=== PATIENT | male | born 1970 | race Caucasian/White ===

== ENCOUNTER 2019-11-01 16:39 | Inpatient (IN) | payer MEDICAID ==
[~2019-11-01] VITALS: Ht 182.9 cm; Wt 183.6 kg
[2019-11-01] MEDS ORDERED: morphine 4 MG/ML inj SYRINge IV ONE (17:05)
[2019-11-01] MEDS ORDERED: piperacillin/tazo 3.375gm/50ml 50 ML IV ONE (17:05)
[2019-11-01] MEDS ORDERED: normal saline 1000ML IV soln IVB ONE (17:05)
[2019-11-01] MEDS ORDERED: vancomycin/NS 1 GM ADD-VANTAGE 250 ML IV ONE (17:05)
[2019-11-01 17:55] LABS: ALANINE AMINOTRANSFERASE 43 U/L (12-78); ALBUMIN 2.6 G/DL (3.4-5.0); ALBUMIN/GLOBULIN RATIO 0.6 (1.1-1.5); ALKALINE PHOSPHATASE 162 IU/L (46-116); ANION GAP 11 (8-16); ASPARTATE AMINO TRANSFERASE 17 U/L (10-37); BILIRUBIN,TOTAL 0.5 MG/DL (0.1-1.0); BLOOD UREA NITROGEN 9 MG/DL (7-18); C-REACTIVE PROTEIN 22.02 MG/DL (0.0-0.5); CALCIUM 8.1 MG/DL (8.5-10.1); CHLORIDE 104 MMOL/L (99-107); GLUCOSE 323 MG/DL (70-104); POTASSIUM 3.8 MMOL/L (3.5-5.1); SODIUM 141 MMOL/L (135-145); TOTAL CARBON DIOXIDE 25.9 MMOL/L (24-32); TOTAL PROTEIN 7.3 G/DL (6.4-8.2); eGFR 90 ML/MIN
[2019-11-01 17:56] LABS: BASOPHILS # (AUTO) 0.2 X10'3 (0-0.2); BASOPHILS % (AUTO) 1.1 % (0-1); EOSINOPHILS # (AUTO) 0.1 X10'3 (0-0.9); EOSINOPHILS % (AUTO) 0.6 % (0-6); HEMATOCRIT 43.2 % (42.0-52.0); HEMOGLOBIN 13.9 g/dl (14.0-17.9); LYMPHOCYTES # (AUTO) 1.8 X10'3 (1.1-4.8); LYMPHOCYTES % (AUTO) 12.7 % (21-51); MEAN CORPUSCULAR HEMOGLOBIN 26.4 PG (27.0-31.0); MEAN CORPUSCULAR HGB CONC 32.2 g/dL (33.0-36.5); MEAN PLATELET VOLUME 7.9 FL (7.4-10.4); MONOCYTES # (AUTO) 1.1 X10'3 (0-0.9); MONOCYTES % (AUTO) 7.9 % (2-12); NEUTROPHILS # (AUTO) 10.9 X10'3 (1.8-7.7); NEUTROPHILS % (AUTO) 77.7 % (42-75); PLATELET COUNT 221 X10'3 (140-440); RED BLOOD COUNT 5.27 X10'6 (4.70-6.10); RED CELL DISTRIBUTION WIDTH 17.4 % (11.5-14.5)
[2019-11-01 18:10] LABS: CLARITY,URINE SLIGHTLY CLOUDY (Clear); COLOR,URINE YELLOW (Yellow); GLUCOSE, URINE >=1000 mg/dl (Neg); KETONES,URINE >=80 mg/dl (Neg); LEUKOCYTE ESTERASE ,URINE NEGATIVE (Neg); NITRITES, URINE NEGATIVE (Neg); OCCULT BLOOD,URINE TRACE-INTACT (Neg); PH,URINE 5.5 (4.8-8.0); PROTEIN,URINE TRACE mg/dl (Neg); UROBILINOGEN,URINE 0.2 E.U/dL (0.2-1.0)
[2019-11-01 18:13] LABS: UA COLLECTION TYPE URINAL
[2019-11-01 18:32] LABS: WBC,URINE 0-4 /HPF (0-4)
[2019-11-01 18:33] LABS: BACTERIA,URINE FEW /HPF (Neg); RBC,URINE 0-2 /HPF (0-2); SQUAMOUS EPITHELIAL CELL,UR NONE SEEN /LPF (FEW)
[2019-11-01] MEDS ORDERED: NO HOME MEDS (19:23)
[2019-11-01] MEDS: normal saline 1000ml 1,000 ML IV SCH (19:24)
[2019-11-01 19:25] LABS: ABG BASE EXCESS -4.5 mmol/L (-2.0-3.0); ABG OXYGEN SATURATION 97.5 % (95-98); ABG PCO2 (T) 45.7 mmHg (35.0-45.0); ABG PO2 (T) 105.9 mmHg (83-108); ALLEN'S TEST POSITIVE; FCOHb 1.9 % (0.5-1.5); FLOW 3 L/min; FO2Hb 95.6 % (94-100); TOTAL HEMOGLOBIN 14.4 G/dl (14.0-17.9)
[2019-11-01] MEDS ORDERED: magnesium 4gm in 100ml NS 100 ML IV PRN (19:25)
[2019-11-01] MEDS ORDERED: acetaminophen 325mg tablet PO PRN (19:25)
[2019-11-01] MEDS ORDERED: potassium CL 10mEq/100ml bag 100 ML IV PRN ×2 (19:25)
[2019-11-01] MEDS ORDERED: potassium Cl 20 mEq SR tablet PO PRN ×2 (19:25)
[2019-11-01] MEDS ORDERED: magnesium Cl slow-release 64mg tablet PO PRN (19:25)
[2019-11-01] MEDS ORDERED: magnesium 2GM in 50ml NS 50 ML IV PRN (19:25)
[2019-11-01] MEDS ORDERED: ondansetron/PF 4mg/2ml inj IV PRN (19:25)
[2019-11-01] MEDS: K and/or MAG REPLACEMENT MC SCH (20:00)
[2019-11-01] MEDS ORDERED: vancomycin/NS 1 GM ADD-VANTAGE 250 ML IV SCH (20:00)
--- NOTE | 2019-11-01 21:18 | NUR ---
Patient in room ED 1. I have received report from Alexander ARCOS and had the opportunity to ask questions and assume patient care. Pt will be going to room 3021Z.
--- NOTE | 2019-11-01 21:25 | NUR ---
Pt arrived on floor. Tele monitor hooked up, pt on 4L of Oxygen, vital signs obtained- 136/96, 106 hr, 98%, 20 RR. MRSA swab obtained. Will continue to monitor pt closely.
[2019-11-01 22:00] VITALS: BP 136/96
--- NOTE | 2019-11-01 22:04 | NUR ---
PAGER ID: [phone] MESSAGE: [id number] Ren Mir Cellulitis of scrotum. Pt has blood sugar of 272 can I start hypo/hyper protocol? Pt also has new onset sleep apnea can I put in order for CPAP and RT? Thanks! Shilpi ARCOS ext [phone]
[2019-11-01] MEDS ORDERED: dextrose ORAL solution 15 GM/59 ML bottle PO PRN ×2 (22:10)
[2019-11-01] MEDS ORDERED: dextrose 50%-water 50ml dispensing syringe IV PRN ×2 (22:10)
[2019-11-01] MEDS ORDERED: MESSAGE TO PHARMACY PO ONE (22:10)
[2019-11-01] MEDS ORDERED: glucagon, human recombinant 1mg kit SUBCUT PRN (22:10)
[2019-11-01 22:27] LABS: HEMOGLOBIN A1C 12.3 % (4.5-6.2)
[2019-11-02] VITALS (7 sets, daily range): BP systolic 119–160; BP diastolic 77–91
[2019-11-02] MEDS: VANCOMYCIN 1,500MG inj. 1,500 MG in normal saline 500ml IV soln 500 ML IV SCH ×3 (00:05→17:34)
[2019-11-02] MEDS: piperacillin/tazo 4.5gm/100ml 100 ML IV SCH ×3 (00:05→17:33)
[2019-11-02] MEDS: docusate sod 100mg capsule PO SCH ×3 (00:06→20:22)
[2019-11-02] MEDS: insulin glargine (Lantus) pen - multi-dose SQ SCH ×2 (00:12→21:13)
[2019-11-02] MEDS: insulin Lispro (HumaLOG) vial - multi-dose SQ SCH ×6 (00:14→21:12)
--- NOTE | 2019-11-02 00:24 | NUR ---
LATE ADMINISTRATION OF COLACE DUE TO PRIORITY OF CARE. WILL CONTINUE TO MONITOR CLOSELY.
[2019-11-02] MEDS: normal saline 1000ml 1,000 ML IV SCH ×2 (05:33→15:56)
[2019-11-02 05:48] LABS: BASOPHILS # (AUTO) 0.1 X10'3 (0-0.2); BASOPHILS % (AUTO) 0.5 % (0-1); EOSINOPHILS # (AUTO) 0.1 X10'3 (0-0.9); EOSINOPHILS % (AUTO) 0.5 % (0-6); HEMATOCRIT 43.9 % (42.0-52.0); LYMPHOCYTES % (AUTO) 8.7 % (21-51); MEAN CORPUSCULAR HEMOGLOBIN 26.5 PG (27.0-31.0); MEAN CORPUSCULAR VOLUME 82.9 FL (78-98); MEAN PLATELET VOLUME 7.8 FL (7.4-10.4); MONOCYTES % (AUTO) 8.1 % (2-12); NEUTROPHILS # (AUTO) 9.8 X10'3 (1.8-7.7); NEUTROPHILS % (AUTO) 82.2 % (42-75); PLATELET COUNT 217 X10'3 (140-440); RED BLOOD COUNT 5.29 X10'6 (4.70-6.10); RED CELL DISTRIBUTION WIDTH 17.9 % (11.5-14.5)
[2019-11-02 06:06] LABS: ALBUMIN 2.5 G/DL (3.4-5.0); ANION GAP 9 (8-16); BLOOD UREA NITROGEN 8 MG/DL (7-18); BUN/CREATININE RATIO 8.8 (5.4-32.0); CALCIUM 8.2 MG/DL (8.5-10.1); CHLORIDE 102 MMOL/L (99-107); CREATININE 0.91 MG/DL (0.60-1.10); GLUCOSE 304 MG/DL (70-104); POTASSIUM 3.9 MMOL/L (3.5-5.1); SODIUM 139 MMOL/L (135-145); TOTAL CARBON DIOXIDE 27.8 MMOL/L (24-32); eGFR 89 ML/MIN
--- NOTE | 2019-11-02 06:13 | NUR ---
Problems reprioritized. Patient report given, questions answered & plan of care reviewed with Bren ARCOS .
--- NOTE | 2019-11-02 06:15 | NUR ---
ORIENTEE documentation: I have reviewed and agree with all interventions, assessments performed and documented by ISRRAEL GOMEZ.
--- NOTE | 2019-11-02 06:42 | NUR ---
Patient in room PCU 3024. I have received report from ISRRAEL Boyd/Maryellen ARCOS and had the opportunity to ask questions and assume patient care.
[2019-11-02] MEDS: K and/or MAG REPLACEMENT MC SCH ×2 (08:00→20:00)
[2019-11-02] MEDS: lisinopril 10 MG tablet PO SCH (11:10)
--- NOTE | 2019-11-02 11:16 | NUR ---
DM Consult: A1C 12.3. Pt admit w/ scrotal cellulitis, new DM DX Glu 261 down from 323 on admit, and severe morbid obesity BMI 54.9 183.5kg standing scale wt. RD d/w RN who reports pt has not been seen by MD yet for official DM DX; will need DM ed once pt aware of DX and seen by MD prior to discharge. PO 100% avg carb controlled diet per RN; triple eggs at breakfast and triple meats BIDLD added to meals given significant protein needs w/ pt wt and infection DX. LBM 10/31. Will continue to monitor. Rec: 1. continue carb controlled diet 2. triple eggs at breakfast; triple meats BIDLD 3. routine bowel care 4. thorough DM ed once pt aware of new DM DX and seen by MD prior to discharge 5. wt per rx Addendum: 11/02/19 at [address] Amended: Links added.
[2019-11-02 15:32] LABS: URINE AMPHETAMINE SCREEN POSITIVE (Neg); URINE BARBITUATE SCREEN NEGATIVE (Neg); URINE BENZODIAZEPINES SCREEN NEGATIVE (Neg); URINE CANNABINOID SCREEN NEGATIVE (Neg); URINE COCAINE SCREEN NEGATIVE (Neg); URINE METHADONE SCREEN NEGATIVE (Neg); URINE OPIATE SCREEN NEGATIVE (Neg); URINE PHENCYCLIDINE SCREEN NEGATIVE (Neg)
--- NOTE | 2019-11-02 17:46 | NUR ---
Called Dr Cedeño's answering service to inform her of our hospital not having a scrotal sling that will fit this patient. Awaiting her call.
--- NOTE | 2019-11-02 18:29 | NUR ---
Problems reprioritized. Patient report given, questions answered & plan of care reviewed with ISRRAEL Boyd/ISRRAEL Dobbins. Informed nurses that patient is to have scrotum in a sling at all times to decreas swelling.
--- NOTE | 2019-11-02 18:32 | NUR ---
Patient in room PCU 3024. I have received report from NEVAEH ARCOS and had the opportunity to ask questions and assume patient care.
[2019-11-02] MEDS: morphine 2 MG/ML inj. syringe IV PRN (18:42)
--- NOTE | 2019-11-02 19:15 | NUR ---
Patient in room PCU 3024B. I have received report from ISRRAEL HERRING and had the opportunity to ask questions and assume patient care. PATIENT AWAKE FOR BEDSIDE REPORT WITH AT BEDSIDE. PATIENT ON 2L NC AND STABLE AT THIS TIME. WILL CONTINUE TO MONITOR CLOSELY.
[2019-11-02] MEDS: lactobacillus rhamnosus 10,000 MMU CELLS/CAPSULE PO SCH (20:22)
[2019-11-02] MEDS ORDERED: VANCOMYCIN LEVEL IV ONE (23:30)
[2019-11-03] MEDS: VANCOMYCIN 1,500MG inj. 1,500 MG in normal saline 500ml IV soln 500 ML IV SCH ×4 (00:15→21:17)
[2019-11-03] MEDS: piperacillin/tazo 4.5gm/100ml 100 ML IV SCH ×3 (00:16→16:23)
[2019-11-03] MEDS: normal saline 1000ml 1,000 ML IV SCH ×3 (01:24→21:18)
[2019-11-03 02:00] VITALS: BP 159/89
[2019-11-03 05:16] LABS: BASOPHILS # (AUTO) 0.1 X10'3 (0-0.2); EOSINOPHILS # (AUTO) 0.2 X10'3 (0-0.9); EOSINOPHILS % (AUTO) 2.1 % (0-6); HEMATOCRIT 41.7 % (42.0-52.0); HEMOGLOBIN 13.4 g/dl (14.0-17.9); LYMPHOCYTES # (AUTO) 1.2 X10'3 (1.1-4.8); LYMPHOCYTES % (AUTO) 13.6 % (21-51); MEAN CORPUSCULAR HEMOGLOBIN 26.3 PG (27.0-31.0); MEAN CORPUSCULAR HGB CONC 32.2 g/dL (33.0-36.5); MEAN CORPUSCULAR VOLUME 81.6 FL (78-98); MEAN PLATELET VOLUME 7.8 FL (7.4-10.4); MONOCYTES # (AUTO) 0.8 X10'3 (0-0.9); MONOCYTES % (AUTO) 9.2 % (2-12); NEUTROPHILS # (AUTO) 6.6 X10'3 (1.8-7.7); NEUTROPHILS % (AUTO) 74.1 % (42-75); PLATELET COUNT 219 X10'3 (140-440); RED CELL DISTRIBUTION WIDTH 17.4 % (11.5-14.5); WHITE BLOOD COUNT 8.9 X10'3 (4.5-11.0)
[2019-11-03 05:25] LABS: ALBUMIN 2.2 G/DL (3.4-5.0); ANION GAP 5 (8-16); BLOOD UREA NITROGEN 7 MG/DL (7-18); BUN/CREATININE RATIO 8.8 (5.4-32.0); CALCIUM 8.1 MG/DL (8.5-10.1); CHLORIDE 105 MMOL/L (99-107); GLUCOSE 221 MG/DL (70-104); POTASSIUM 3.6 MMOL/L (3.5-5.1); SODIUM 140 MMOL/L (135-145); TOTAL CARBON DIOXIDE 29.9 MMOL/L (24-32); eGFR > 90 ML/MIN
[2019-11-03 06:00] VITALS: BP_SYST 122; BP_DIAS 22; BP_DIAS 72
--- NOTE | 2019-11-03 06:33 | NUR ---
Problems reprioritized. Patient report given, questions answered & plan of care reviewed with ISRRAEL Correia.
--- NOTE | 2019-11-03 06:59 | NUR ---
Patient in room PCU 3024. I have received report from ISRRAEL Boyd and had the opportunity to ask questions and assume patient care.
[2019-11-03] MEDS: K and/or MAG REPLACEMENT MC SCH ×2 (08:00→19:27)
[2019-11-03] MEDS: insulin Lispro (HumaLOG) vial - multi-dose SQ SCH ×3 (09:11→21:15)
[2019-11-03] MEDS: heparin, porcine 5000 units/ml vial SQ SCH ×2 (09:16→21:18)
[2019-11-03] MEDS: lactobacillus rhamnosus 10,000 MMU CELLS/CAPSULE PO SCH ×2 (09:18→21:17)
[2019-11-03] MEDS: docusate sod 100mg capsule PO SCH ×2 (09:18→21:17)
[2019-11-03] MEDS: lisinopril 10 MG tablet PO SCH (09:23)
--- NOTE | 2019-11-03 16:27 | NUR ---
DM Consult: A1C 12.3. Pt admit w/ scrotal cellulitis, new DM DX. Met patient and at bedside, patient heavily asleep would and unable to participate in education. at bedside reports patient has tried diets and "cutting out sugar" in the past and says currently he just needs to stop drinking sugar sweetened beverages. Provided with written DM educations handouts to review with him tonight and will return tomorrow to meet with patient and for detailed verbal review of DM education. Addendum: 11/03/19 at [address] Amended: Links added.
[2019-11-03 18:00] VITALS: BP 156/96
--- NOTE | 2019-11-03 18:28 | NUR ---
Problems reprioritized. Patient report given, questions answered & plan of care reviewed with ISRRAEL Cruz. Informed nurse, patient needs to keep scrotal support around scrotum to decrease swelling, per Dr Salcedo requests.
[2019-11-03] MEDS: insulin glargine (Lantus) pen - multi-dose SQ SCH (21:14)
[2019-11-03 22:00] VITALS: BP 149/87
[2019-11-04] VITALS (7 sets, daily range): BP systolic 125–171; BP diastolic 70–96
[2019-11-04] MEDS: piperacillin/tazo 4.5gm/100ml 100 ML IV SCH ×3 (00:35→16:00)
[2019-11-04] MEDS ORDERED: VANCOMYCIN LEVEL IV ONE (01:30)
[2019-11-04] MEDS: VANCOMYCIN 1,500MG inj. 1,500 MG in normal saline 500ml IV soln 500 ML IV SCH ×5 (02:05→21:02)
[2019-11-04 02:11] LABS: ALBUMIN 2.1 G/DL (3.4-5.0); ANION GAP 5 (8-16); BLOOD UREA NITROGEN 6 MG/DL (7-18); BUN/CREATININE RATIO 8.8 (5.4-32.0); CALCIUM 7.9 MG/DL (8.5-10.1); CHLORIDE 107 MMOL/L (99-107); CREATININE 0.68 MG/DL (0.60-1.10); GLUCOSE 189 MG/DL (70-104); MAGNESIUM 1.9 MG/DL (1.5-2.4); POTASSIUM 3.5 MMOL/L (3.5-5.1); SODIUM 142 MMOL/L (135-145); TOTAL CARBON DIOXIDE 30.1 MMOL/L (24-32); VANCOMYCIN,TROUGH 14.5 UG/ML (6.0-14.0); eGFR > 90 ML/MIN
[2019-11-04 02:28] LABS: BASOPHILS # (AUTO) 0.1 X10'3 (0-0.2); BASOPHILS % (AUTO) 0.9 % (0-1); EOSINOPHILS # (AUTO) 0.2 X10'3 (0-0.9); EOSINOPHILS % (AUTO) 2.3 % (0-6); HEMATOCRIT 42.7 % (42.0-52.0); HEMOGLOBIN 13.7 g/dl (14.0-17.9); LYMPHOCYTES # (AUTO) 1.1 X10'3 (1.1-4.8); LYMPHOCYTES % (AUTO) 13.9 % (21-51); MEAN CORPUSCULAR HEMOGLOBIN 26.2 PG (27.0-31.0); MEAN CORPUSCULAR VOLUME 81.7 FL (78-98); MEAN PLATELET VOLUME 7.7 FL (7.4-10.4); MONOCYTES # (AUTO) 0.7 X10'3 (0-0.9); MONOCYTES % (AUTO) 9.2 % (2-12); NEUTROPHILS # (AUTO) 5.8 X10'3 (1.8-7.7); NEUTROPHILS % (AUTO) 73.7 % (42-75); PLATELET COUNT 231 X10'3 (140-440); RED BLOOD COUNT 5.22 X10'6 (4.70-6.10); RED CELL DISTRIBUTION WIDTH 17.3 % (11.5-14.5); WHITE BLOOD COUNT 7.9 X10'3 (4.5-11.0)
--- NOTE | 2019-11-04 06:15 | NUR ---
Problems reprioritized. Patient report given, questions answered & plan of care reviewed with Jennyfer ARCOS.
--- NOTE | 2019-11-04 06:30 | NUR ---
Patient in room PCU 3024. I have received report from Nancy ARCOS and had the opportunity to ask questions and assume patient care.
[2019-11-04] MEDS: insulin Lispro (HumaLOG) vial - multi-dose SQ SCH ×3 (07:53→18:39)
[2019-11-04] MEDS: normal saline 1000ml 1,000 ML IV SCH ×2 (07:56→18:46)
[2019-11-04] MEDS: docusate sod 100mg capsule PO SCH ×2 (08:00→21:02)
[2019-11-04] MEDS: K and/or MAG REPLACEMENT MC SCH ×2 (08:00→20:00)
[2019-11-04] MEDS: heparin, porcine 5000 units/ml vial SQ SCH ×2 (08:01→21:04)
[2019-11-04] MEDS: lactobacillus rhamnosus 10,000 MMU CELLS/CAPSULE PO SCH ×2 (08:01→21:02)
[2019-11-04] MEDS: lisinopril 10 MG tablet PO SCH (08:02)
--- NOTE | 2019-11-04 13:55 | NUR ---
IV was lost during vanco administration this morning, PICC nurse was contacted because patient is a hard stick. When IV was replaced, vanco administration resumed and finished running at 1230, next dose was due at 1400, I contacted pharmacy to space out the next dose and the pharmacist advised me to skip the 1400 and resume with the 2000 dose this evening.
--- NOTE | 2019-11-04 15:43 | NUR ---
Follow up: attempted another bedside visit with patient regarding new DM dx and nutrition education. Was fast asleep after PT, would not stay awake for education. Discussed DM education with his SO. Will return tomorrow before patient participates in PT, discussed above with bedside RN. Addendum: 11/04/19 at [address] Amended: Links added.
[2019-11-04] MEDS: insulin glargine (Lantus) pen - multi-dose SQ SCH (21:15)
[2019-11-05] MEDS: piperacillin/tazo 4.5gm/100ml 100 ML IV SCH ×3 (00:13→16:31)
[2019-11-05 03:00] VITALS: BP 126/74
[2019-11-05] MEDS: VANCOMYCIN 1,500MG inj. 1,500 MG in normal saline 500ml IV soln 500 ML IV SCH ×4 (03:18→23:22)
[2019-11-05] MEDS: normal saline 1000ml 1,000 ML IV SCH ×3 (03:24→23:24)
[2019-11-05 05:17] LABS: BASOPHILS # (AUTO) 0.1 X10'3 (0-0.2); BASOPHILS % (AUTO) 0.9 % (0-1); EOSINOPHILS # (AUTO) 0.2 X10'3 (0-0.9); EOSINOPHILS % (AUTO) 2.2 % (0-6); HEMATOCRIT 43.4 % (42.0-52.0); HEMOGLOBIN 14.1 g/dl (14.0-17.9); LYMPHOCYTES # (AUTO) 1.1 X10'3 (1.1-4.8); LYMPHOCYTES % (AUTO) 14.8 % (21-51); MEAN CORPUSCULAR HEMOGLOBIN 26.8 PG (27.0-31.0); MEAN CORPUSCULAR HGB CONC 32.6 g/dL (33.0-36.5); MEAN CORPUSCULAR VOLUME 82.3 FL (78-98); MEAN PLATELET VOLUME 7.4 FL (7.4-10.4); MONOCYTES # (AUTO) 0.5 X10'3 (0-0.9); MONOCYTES % (AUTO) 7.2 % (2-12); NEUTROPHILS # (AUTO) 5.5 X10'3 (1.8-7.7); NEUTROPHILS % (AUTO) 74.9 % (42-75); PLATELET COUNT 242 X10'3 (140-440); RED BLOOD COUNT 5.28 X10'6 (4.70-6.10); RED CELL DISTRIBUTION WIDTH 17.4 % (11.5-14.5); WHITE BLOOD COUNT 7.3 X10'3 (4.5-11.0)
[2019-11-05 05:35] LABS: ANION GAP 8 (8-16); BLOOD UREA NITROGEN 9 MG/DL (7-18); BUN/CREATININE RATIO 11.8 (5.4-32.0); CALCIUM 7.9 MG/DL (8.5-10.1); CHLORIDE 107 MMOL/L (99-107); CREATININE 0.76 MG/DL (0.60-1.10); GLUCOSE 240 MG/DL (70-104); MAGNESIUM 1.9 MG/DL (1.5-2.4); POTASSIUM 3.5 MMOL/L (3.5-5.1); SODIUM 143 MMOL/L (135-145); TOTAL CARBON DIOXIDE 27.6 MMOL/L (24-32); eGFR > 90 ML/MIN
[2019-11-05 06:00] VITALS: BP 130/63
--- NOTE | 2019-11-05 06:17 | NUR ---
Problems reprioritized. Patient report given, questions answered & plan of care reviewed with Angelica ARCOS.
[2019-11-05] MEDS: K and/or MAG REPLACEMENT MC SCH ×2 (07:09→20:00)
[2019-11-05] MEDS: lactobacillus rhamnosus 10,000 MMU CELLS/CAPSULE PO SCH ×2 (08:00→20:02)
[2019-11-05] MEDS: docusate sod 100mg capsule PO SCH ×2 (08:00→20:02)
[2019-11-05] MEDS: lisinopril 10 MG tablet PO SCH (08:48)
[2019-11-05] MEDS: heparin, porcine 5000 units/ml vial SQ SCH ×2 (08:49→20:03)
[2019-11-05] MEDS: insulin Lispro (HumaLOG) vial - multi-dose SQ SCH ×3 (09:34→19:06)
[2019-11-05 11:00] VITALS: BP 140/86
--- NOTE | 2019-11-05 11:08 | NUR ---
Missing IV Vancomycin dose is replaced by pharmacy and started. Taylor
--- NOTE | 2019-11-05 11:09 | NUR ---
IV vancomycin dose Pharmacy is aware and will leave the schedule trough and next dose unchanged.
[2019-11-05] MEDS ORDERED: VANCOMYCIN LEVEL IV ONE (13:30)
--- NOTE | 2019-11-05 14:08 | NUR ---
Patient in room PCU 3024. I have received report from ISRRAEL Dominguez and had the opportunity to ask questions and assume patient care.
[2019-11-05 15:00] VITALS: BP 151/87
--- NOTE | 2019-11-05 15:37 | NUR ---
Reassessment: eating well, good appetite. Spoke with patient and SO at bedside and provided detailed review of DM education, types of carbs, carb counting, portion sizes, effects of uncontrolled DM, what A1c means, etc. Rec: 1. continue carb controlled diet 2. triple eggs at breakfast; triple meats BIDLD 3. routine bowel care 4. wt per rx Addendum: 11/05/19 at [address] Amended: Links added.
--- NOTE | 2019-11-05 15:54 | NUR ---
PAGER ID: [phone] MESSAGE: [id number]: Luciano NOBLES: Pt left groin area is putting out joaquin - Aletha [phone]
--- NOTE | 2019-11-05 16:11 | NUR ---
New orders from [facility] to culture drainage from abscess to left groin
--- NOTE | 2019-11-05 17:46 | NUR ---
New orders from [facility] for pt to reieive 25 units SQ lantus q HS
[2019-11-05 18:00] VITALS: BP 135/80
--- NOTE | 2019-11-05 18:17 | NUR ---
Problems reprioritized. Patient report given, questions answered & plan of care reviewed with ISRRAEL Baca.
--- NOTE | 2019-11-05 18:42 | NUR ---
Patient in room PCU 3024. I have received report from Aletha ARCOS and had the opportunity to ask questions and assume patient care.
[2019-11-05] MEDS: HYDROcodone/acetaminophen 5mg/325mg tablet PO PRN (20:03)
[2019-11-05] MEDS ORDERED: insulin glargine (Lantus) pen - multi-dose SQ SCH (21:00)
[2019-11-05 22:00] VITALS: BP 160/90
[2019-11-06] MEDS: piperacillin/tazo 4.5gm/100ml 100 ML IV SCH ×3 (00:19→17:38)
[2019-11-06 02:00] VITALS: BP 145/94
[2019-11-06] MEDS ORDERED: VANCOMYCIN LEVEL IV ONE (04:30)
[2019-11-06 06:07] LABS: ALBUMIN 2.2 G/DL (3.4-5.0); ANION GAP 10 (8-16); BLOOD UREA NITROGEN 11 MG/DL (7-18); BUN/CREATININE RATIO 15.5 (5.4-32.0); CALCIUM 8.6 MG/DL (8.5-10.1); CHLORIDE 106 MMOL/L (99-107); CREATININE 0.71 MG/DL (0.60-1.10); GLUCOSE 181 MG/DL (70-104); MAGNESIUM 1.9 MG/DL (1.5-2.4); POTASSIUM 3.7 MMOL/L (3.5-5.1); SODIUM 144 MMOL/L (135-145); TOTAL CARBON DIOXIDE 28.5 MMOL/L (24-32); VANCOMYCIN,TROUGH 14.4 UG/ML (6.0-14.0); eGFR > 90 ML/MIN
[2019-11-06 06:09] LABS: BASOPHILS # (AUTO) 0.1 X10'3 (0-0.2); BASOPHILS % (AUTO) 0.8 % (0-1); EOSINOPHILS # (AUTO) 0.2 X10'3 (0-0.9); HEMOGLOBIN 14.7 g/dl (14.0-17.9); LYMPHOCYTES # (AUTO) 1.1 X10'3 (1.1-4.8); LYMPHOCYTES % (AUTO) 13.8 % (21-51); MEAN CORPUSCULAR HEMOGLOBIN 26.7 PG (27.0-31.0); MEAN CORPUSCULAR HGB CONC 32.7 g/dL (33.0-36.5); MEAN CORPUSCULAR VOLUME 81.5 FL (78-98); MEAN PLATELET VOLUME 7.1 FL (7.4-10.4); MONOCYTES # (AUTO) 0.7 X10'3 (0-0.9); MONOCYTES % (AUTO) 8.5 % (2-12); NEUTROPHILS % (AUTO) 74.9 % (42-75); PLATELET COUNT 279 X10'3 (140-440); RED BLOOD COUNT 5.52 X10'6 (4.70-6.10); RED CELL DISTRIBUTION WIDTH 17.4 % (11.5-14.5)
--- NOTE | 2019-11-06 06:11 | NUR ---
Patient in room PCU 3024. I have received report from ISRRAEL Baca and had the opportunity to ask questions and assume patient care.
[2019-11-06] MEDS: VANCOMYCIN 1,500MG inj. 1,500 MG in normal saline 500ml IV soln 500 ML IV SCH ×3 (06:48→20:45)
[2019-11-06 07:00] VITALS: BP 115/73
--- NOTE | 2019-11-06 07:30 | NUR ---
Problems reprioritized. Patient report given, questions answered & plan of care reviewed with Aletha ARCOS.
[2019-11-06] MEDS: heparin, porcine 5000 units/ml vial SQ SCH ×2 (08:42→19:47)
[2019-11-06] MEDS: lactobacillus rhamnosus 10,000 MMU CELLS/CAPSULE PO SCH ×2 (08:42→19:46)
[2019-11-06] MEDS: docusate sod 100mg capsule PO SCH ×2 (08:42→19:46)
[2019-11-06] MEDS: lisinopril 10 MG tablet PO SCH (08:42)
[2019-11-06] MEDS: K and/or MAG REPLACEMENT MC SCH ×2 (08:48→20:00)
[2019-11-06] MEDS: normal saline 1000ml 1,000 ML IV SCH ×2 (09:24→19:24)
[2019-11-06] MEDS: insulin Lispro (HumaLOG) vial - multi-dose SQ SCH ×4 (10:20→21:40)
--- NOTE | 2019-11-06 10:43 | NUR ---
Per Dr. Salcedo, take pt off of NPO and resume CC
[2019-11-06 11:00] VITALS: BP 152/93
[2019-11-06 15:00] VITALS: BP 136/65
[2019-11-06 18:00] VITALS: BP 145/90
--- NOTE | 2019-11-06 18:00 | NUR ---
Patient in room PCU 3024. I have received report from chuck ARCOS and had the opportunity to ask questions and assume patient care.
--- NOTE | 2019-11-06 18:05 | NUR ---
Patient in room PCU 3024. I have received report from ISRRAEL Chua and had the opportunity to ask questions and assume patient care.
--- NOTE | 2019-11-06 19:24 | NUR ---
Patient stated he is willing to try BiPAP mask at 2100 tonight. Addendum: 11/06/19 at 1925 [address] Joes[address] RT Amended: Links added.
[2019-11-06] MEDS ORDERED: insulin glargine (Lantus) pen - multi-dose SQ SCH (21:00)
[2019-11-06 22:00] VITALS: BP 145/85
[2019-11-07 02:30] VITALS: BP 122/74
--- NOTE | 2019-11-07 03:47 | NUR ---
I placed the patient on the BiPAP but he was only able to tolerate it for about an hour before it was taken off of him. Patient stated it was hard for him to breathe with it. I adjusted the settings for the patient to his comfort but it still only lasted an hour on him.
[2019-11-07] MEDS: VANCOMYCIN 1,500MG inj. 1,500 MG in normal saline 500ml IV soln 500 ML IV SCH ×4 (03:55→22:30)
[2019-11-07] MEDS: normal saline 1000ml 1,000 ML IV SCH ×2 (05:24→14:15)
[2019-11-07 06:06] LABS: MAGNESIUM 2.1 MG/DL (1.5-2.4)
[2019-11-07 06:30] VITALS: BP 98/74
--- NOTE | 2019-11-07 06:36 | NUR ---
Patient in room PCU 3024B. I have received report from Libia ARCOS and had the opportunity to ask questions and assume patient care.
--- NOTE | 2019-11-07 06:40 | NUR ---
Problems reprioritized. Patient report given, questions answered & plan of care reviewed with Flakita ARCOS.
--- NOTE | 2019-11-07 06:40 | NUR ---
Received positive culture growth MRSA in groin. Reported result to Dr Rodriguez with no change in orders
[2019-11-07 07:06] LABS: ALANINE AMINOTRANSFERASE 84 U/L (12-78); ALBUMIN 2.3 G/DL (3.4-5.0); ALBUMIN/GLOBULIN RATIO 0.5 (1.1-1.5); ALKALINE PHOSPHATASE 155 IU/L (46-116); ANION GAP 10 (8-16); ASPARTATE AMINO TRANSFERASE 38 U/L (10-37); BILIRUBIN,TOTAL 0.4 MG/DL (0.1-1.0); BLOOD UREA NITROGEN 9 MG/DL (7-18); BUN/CREATININE RATIO 12.3 (5.4-32.0); CALCIUM 8.8 MG/DL (8.5-10.1); CHLORIDE 106 MMOL/L (99-107); CREATININE 0.73 MG/DL (0.60-1.10); GLUCOSE 149 MG/DL (70-104); POTASSIUM 4.1 MMOL/L (3.5-5.1); SODIUM 144 MMOL/L (135-145); TOTAL CARBON DIOXIDE 28.3 MMOL/L (24-32); TOTAL PROTEIN 6.8 G/DL (6.4-8.2); eGFR > 90 ML/MIN
[2019-11-07 07:08] LABS: BASOPHILS # (AUTO) 0.1 X10'3 (0-0.2); BASOPHILS % (AUTO) 0.7 % (0-1); EOSINOPHILS # (AUTO) 0.2 X10'3 (0-0.9); EOSINOPHILS % (AUTO) 2.2 % (0-6); HEMATOCRIT 46.5 % (42.0-52.0); HEMOGLOBIN 14.8 g/dl (14.0-17.9); LYMPHOCYTES # (AUTO) 1.2 X10'3 (1.1-4.8); LYMPHOCYTES % (AUTO) 14.9 % (21-51); MEAN CORPUSCULAR HEMOGLOBIN 26.4 PG (27.0-31.0); MEAN CORPUSCULAR HGB CONC 31.9 g/dL (33.0-36.5); MEAN CORPUSCULAR VOLUME 82.7 FL (78-98); MEAN PLATELET VOLUME 7.3 FL (7.4-10.4); MONOCYTES # (AUTO) 0.8 X10'3 (0-0.9); MONOCYTES % (AUTO) 10.1 % (2-12); NEUTROPHILS # (AUTO) 5.8 X10'3 (1.8-7.7); NEUTROPHILS % (AUTO) 72.1 % (42-75); PLATELET COUNT 299 X10'3 (140-440); RED BLOOD COUNT 5.62 X10'6 (4.70-6.10); RED CELL DISTRIBUTION WIDTH 17.7 % (11.5-14.5); WHITE BLOOD COUNT 8.1 X10'3 (4.5-11.0)
[2019-11-07] MEDS: docusate sod 100mg capsule PO SCH ×2 (07:45→21:11)
[2019-11-07] MEDS: lactobacillus rhamnosus 10,000 MMU CELLS/CAPSULE PO SCH ×2 (07:45→21:11)
[2019-11-07] MEDS: piperacillin/tazo 4.5gm/100ml 100 ML IV SCH ×3 (07:49→16:45)
[2019-11-07] MEDS: heparin, porcine 5000 units/ml vial SQ SCH ×2 (07:49→21:11)
[2019-11-07] MEDS: lisinopril 10 MG tablet PO SCH (07:53)
[2019-11-07] MEDS: K and/or MAG REPLACEMENT MC SCH ×2 (08:00→20:00)
[2019-11-07] MEDS: insulin Lispro (HumaLOG) vial - multi-dose SQ SCH ×2 (09:12→14:00)
[2019-11-07 11:00] VITALS: BP 138/83
[2019-11-07] MEDS ORDERED: LIDOcaine 1% 30ml preserv. free vial SQ STA (13:05)
--- NOTE | 2019-11-07 14:13 | NUR ---
clicked "non admin" on xylocaine 1% medication, as Dr Salcedo administered during lancing procedure
[2019-11-07 15:00] VITALS: BP 133/73
--- NOTE | 2019-11-07 18:00 | NUR ---
Patient in room PCU 3024. I have received report from nurse Flakita ARCOS and had the opportunity to ask questions and assume patient care.
--- NOTE | 2019-11-07 18:00 | NUR ---
Patient in room U 3024. I have received report from nurse Flakita ARCOS and had the opportunity to ask questions and assume patient care. Addendum: 11/07/19 at 1905 by Korina Fowler RN duplicate, please omit.
--- NOTE | 2019-11-07 18:28 | NUR ---
Problems reprioritized. Patient report given, questions answered & plan of care reviewed with Korina ARCOS.
[2019-11-07] MEDS ORDERED: insulin glargine (Lantus) pen - multi-dose SQ SCH (21:00)
[2019-11-07] MEDS ORDERED: VANCOMYCIN LEVEL IV ONE (21:30)
[2019-11-07] MEDS: HYDROcodone/acetaminophen 5mg/325mg tablet PO PRN (23:20)
[2019-11-08] MEDS: piperacillin/tazo 4.5gm/100ml 100 ML IV SCH ×2 (00:31→08:40)
[2019-11-08 02:00] VITALS: BP 101/56
[2019-11-08] MEDS: normal saline 1000ml 1,000 ML IV SCH ×3 (04:38→21:24)
[2019-11-08] MEDS: VANCOMYCIN 1,500MG inj. 1,500 MG in normal saline 500ml IV soln 500 ML IV SCH ×4 (04:43→22:04)
--- NOTE | 2019-11-08 05:27 | NUR ---
No hypoglycemic episodes this shift; BS of 185. Pt. educated on reporting s/ so hypoglycemia including, sweating, shaking, slurred speech, and disorientation> Pt also education on reporting s/s of infection especially feeling febrile; Pt. verbalized understanding. Addendum: 11/08/19 at 0533 by Korina Fowler RN Amended: Links added.
--- NOTE | 2019-11-08 06:09 | NUR ---
Problems reprioritized. Patient report given, questions answered & plan of care reviewed with Flakita ARCOS. Addendum: 11/08/19 at 0710 by Korina Fowler RN Amended: Links added.
--- NOTE | 2019-11-08 06:17 | NUR ---
Patient in room U 3027D. I have received report from Korina ARCOS and had the opportunity to ask questions and assume patient care.
[2019-11-08 06:30] VITALS: BP 125/54
[2019-11-08 07:16] LABS: BASOPHILS # (AUTO) 0.1 X10'3 (0-0.2); BASOPHILS % (AUTO) 1.1 % (0-1); EOSINOPHILS # (AUTO) 0.2 X10'3 (0-0.9); EOSINOPHILS % (AUTO) 2.6 % (0-6); HEMATOCRIT 45.2 % (42.0-52.0); HEMOGLOBIN 14.6 g/dl (14.0-17.9); LYMPHOCYTES # (AUTO) 1.1 X10'3 (1.1-4.8); LYMPHOCYTES % (AUTO) 15.3 % (21-51); MEAN CORPUSCULAR HEMOGLOBIN 26.7 PG (27.0-31.0); MEAN CORPUSCULAR HGB CONC 32.2 g/dL (33.0-36.5); MEAN CORPUSCULAR VOLUME 82.7 FL (78-98); MEAN PLATELET VOLUME 7.1 FL (7.4-10.4); MONOCYTES # (AUTO) 0.8 X10'3 (0-0.9); MONOCYTES % (AUTO) 10.6 % (2-12); NEUTROPHILS # (AUTO) 5.1 X10'3 (1.8-7.7); NEUTROPHILS % (AUTO) 70.4 % (42-75); PLATELET COUNT 257 X10'3 (140-440); RED BLOOD COUNT 5.47 X10'6 (4.70-6.10); RED CELL DISTRIBUTION WIDTH 17.5 % (11.5-14.5); WHITE BLOOD COUNT 7.2 X10'3 (4.5-11.0)
[2019-11-08 07:34] LABS: ALANINE AMINOTRANSFERASE 74 U/L (12-78); ALBUMIN 2.3 G/DL (3.4-5.0); ALBUMIN/GLOBULIN RATIO 0.5 (1.1-1.5); ALKALINE PHOSPHATASE 141 IU/L (46-116); ANION GAP 9 (8-16); ASPARTATE AMINO TRANSFERASE 27 U/L (10-37); BILIRUBIN,TOTAL 0.3 MG/DL (0.1-1.0); BLOOD UREA NITROGEN 10 MG/DL (7-18); BUN/CREATININE RATIO 12.5 (5.4-32.0); CALCIUM 8.9 MG/DL (8.5-10.1); CHLORIDE 106 MMOL/L (99-107); GLUCOSE 177 MG/DL (70-104); POTASSIUM 3.9 MMOL/L (3.5-5.1); SODIUM 143 MMOL/L (135-145); TOTAL CARBON DIOXIDE 27.7 MMOL/L (24-32); TOTAL PROTEIN 6.6 G/DL (6.4-8.2); eGFR > 90 ML/MIN
[2019-11-08] MEDS: HYDROcodone/acetaminophen 5mg/325mg tablet PO PRN ×3 (07:41→20:16)
[2019-11-08] MEDS: K and/or MAG REPLACEMENT MC SCH ×2 (08:00→20:00)
[2019-11-08] MEDS: docusate sod 100mg capsule PO SCH ×2 (08:38→20:16)
[2019-11-08] MEDS: lactobacillus rhamnosus 10,000 MMU CELLS/CAPSULE PO SCH ×2 (08:38→20:16)
[2019-11-08] MEDS: lisinopril 10 MG tablet PO SCH (08:40)
[2019-11-08] MEDS: heparin, porcine 5000 units/ml vial SQ SCH ×2 (08:41→20:16)
[2019-11-08] MEDS: insulin Lispro (HumaLOG) vial - multi-dose SQ SCH ×2 (08:44→18:51)
[2019-11-08 11:00] VITALS: BP 117/72
--- NOTE | 2019-11-08 14:49 | NUR ---
F/u (11/07): Pt PO 75-100% avg carb controlled meals w/ triple proteins meeting needs. S/p I&D L inguinal abscess per MD note. LBM 11/04. No nutrition concerns at this time. Will continue to monitor. Rec: 1. continue carb controlled diet 2. triple eggs at breakfast; triple meats BIDLD 3. routine bowel care 4. wt per rx Addendum: 11/08/19 at [address] Amended: Links added.
[2019-11-08 15:00] VITALS: BP 129/86
[2019-11-08] MEDS: piperacillin/tazo 3.375gm/50ml 50 ML IV SCH ×2 (15:58→23:45)
[2019-11-08] MEDS ORDERED: INSU100V11 SQ (15:59)
[2019-11-08] MEDS ORDERED: HYDR-4383 PO ×2 (15:59→16:00)
[2019-11-08] MEDS ORDERED: LISI10TA4 PO (15:59)
[2019-11-08] MEDS ORDERED: LANTUS SQ (15:59)
[2019-11-08] MEDS ORDERED: LACT1CAP26 PO (15:59)
--- NOTE | 2019-11-08 16:00 | NUR ---
Spoke to wound care nurse, and she stated that at this time, patient's groin wound is not appropriate for a wound vac and to continue with the BID dressing changes
--- NOTE | 2019-11-08 18:22 | NUR ---
Problems reprioritized. Patient report given, questions answered & plan of care reviewed with Tereza ARCOS.
[2019-11-08 18:36] VITALS: BP 129/86
[2019-11-08] MEDS: nystatin 15 GM powder TP SCH (20:16)
[2019-11-08] MEDS ORDERED: insulin glargine (Lantus) pen - multi-dose SQ SCH (21:00)
[2019-11-09 02:00] VITALS: BP 131/79
[2019-11-09] MEDS: VANCOMYCIN 1,500MG inj. 1,500 MG in normal saline 500ml IV soln 500 ML IV SCH ×2 (03:55→10:46)
[2019-11-09 05:42] LABS: BASOPHILS # (AUTO) 0.1 X10'3 (0-0.2); EOSINOPHILS # (AUTO) 0.2 X10'3 (0-0.9); EOSINOPHILS % (AUTO) 2.9 % (0-6); HEMATOCRIT 43.9 % (42.0-52.0); HEMOGLOBIN 14.3 g/dl (14.0-17.9); LYMPHOCYTES # (AUTO) 1.1 X10'3 (1.1-4.8); MEAN CORPUSCULAR HEMOGLOBIN 26.7 PG (27.0-31.0); MEAN CORPUSCULAR HGB CONC 32.5 g/dL (33.0-36.5); MEAN CORPUSCULAR VOLUME 82.3 FL (78-98); MEAN PLATELET VOLUME 7.1 FL (7.4-10.4); MONOCYTES # (AUTO) 0.7 X10'3 (0-0.9); MONOCYTES % (AUTO) 10.5 % (2-12); NEUTROPHILS # (AUTO) 4.6 X10'3 (1.8-7.7); NEUTROPHILS % (AUTO) 68.6 % (42-75); PLATELET COUNT 248 X10'3 (140-440); RED BLOOD COUNT 5.34 X10'6 (4.70-6.10); RED CELL DISTRIBUTION WIDTH 17.3 % (11.5-14.5); WHITE BLOOD COUNT 6.7 X10'3 (4.5-11.0)
[2019-11-09 05:55] LABS: ALANINE AMINOTRANSFERASE 59 U/L (12-78); ALBUMIN 2.3 G/DL (3.4-5.0); ALBUMIN/GLOBULIN RATIO 0.5 (1.1-1.5); ALKALINE PHOSPHATASE 136 IU/L (46-116); ANION GAP 7 (8-16); ASPARTATE AMINO TRANSFERASE 26 U/L (10-37); BILIRUBIN,TOTAL 0.3 MG/DL (0.1-1.0); BLOOD UREA NITROGEN 11 MG/DL (7-18); BUN/CREATININE RATIO 15.7 (5.4-32.0); CALCIUM 8.9 MG/DL (8.5-10.1); CHLORIDE 107 MMOL/L (99-107); GLUCOSE 149 MG/DL (70-104); POTASSIUM 4.1 MMOL/L (3.5-5.1); SODIUM 143 MMOL/L (135-145); TOTAL CARBON DIOXIDE 29.1 MMOL/L (24-32); TOTAL PROTEIN 6.7 G/DL (6.4-8.2); eGFR > 90 ML/MIN
[2019-11-09 06:00] VITALS: BP 157/85
--- NOTE | 2019-11-09 06:36 | NUR ---
Patient in room U 3024B. I have received report from Tereza ARCOS and had the opportunity to ask questions and assume patient care.
[2019-11-09] MEDS: HYDROcodone/acetaminophen 5mg/325mg tablet PO PRN (07:37)
[2019-11-09] MEDS: docusate sod 100mg capsule PO SCH (07:38)
[2019-11-09] MEDS: lactobacillus rhamnosus 10,000 MMU CELLS/CAPSULE PO SCH (07:41)
[2019-11-09] MEDS: lisinopril 10 MG tablet PO SCH (07:41)
[2019-11-09] MEDS: nystatin 15 GM powder TP SCH (07:48)
[2019-11-09] MEDS: piperacillin/tazo 3.375gm/50ml 50 ML IV SCH (07:51)
[2019-11-09] MEDS: heparin, porcine 5000 units/ml vial SQ SCH (07:57)
[2019-11-09] MEDS: Dakins solution (1/4 strength) 473ml solution TP SCH ×2 (08:00→13:50)
[2019-11-09] MEDS: K and/or MAG REPLACEMENT MC SCH (08:00)
[2019-11-09] MEDS: insulin Lispro (HumaLOG) vial - multi-dose SQ SCH (08:52)
[2019-11-09] MEDS: normal saline 1000ml 1,000 ML IV SCH (10:46)
[2019-11-09 11:00] VITALS: BP 121/54
[2019-11-09] MEDS ORDERED: LINE600T11 PO (11:54)
--- NOTE | 2019-11-09 12:14 | NUR ---
Katia SCHAFFER PAGER ID: [phone] MESSAGE: Lio [phone]. RE Edna Mir 3024K. Need clarification on what level Humalog sliding scale you would like patient to be on for discharge/ home insulin management. Please call, thank you
[2019-11-09] MEDS: morphine 2 MG/ML inj. syringe IV PRN (13:46)
--- NOTE | 2019-11-09 15:20 | NUR ---
Per MD, patient stable for discharge home. Discharge packet provided. Lots of diabetic education provided, including diet, new insulin prescriptions. New prescriptions called into [facility] in [place], and hardcopy [place] prescription given to patient. Case management faxed over prescriptions to [facility] in [place] for Diabetic supplies (lancets, strips, monitor,etc). Patient educated about sliding scale management, per MD, patient is to follow Level 6 protocol, so level 6 scale was provided to patient. Patient has followup appt on 11/10/19 at [facility] with MANAGER INTEL Paul Tapia @ [phone]. Additionally, patient ALSO has followup appt with [facility] wound care clinic on Friday11/12/19. Patient given lots of wound care supples by wound care nurse and primary RN and was educated by Dr Salcedo through demonstration on how to clean and repack patient's groin wound. Patient driven home via private vehicle by .
== END 2019-11-09 15:19 | disposition home or self-care (01) | DRG 951 ==
LOC: ER 16:41 → ED HOLD 19:24 → PCU 3S 21:30
PROVIDERS: ADMIT Internal Medicine; ATTEND Family Medicine
PROC: 0Y960ZZ Drainage of Left Inguinal Region, Open Approach (ICD-10-PCS; principal; 2019-11-07)
DX: N49.2 Inflammatory disorders of scrotum (principal); E11.65 Type 2 diabetes mellitus with hyperglycemia; E66.01 Morbid (severe) obesity due to excess calories; E11.9 Type 2 diabetes mellitus without complications; F15.10 Other stimulant abuse, uncomplicated; I10 Essential (primary) hypertension; L02.214 Cutaneous abscess of groin; E78.5 Hyperlipidemia, unspecified; F17.200 Nicotine dependence, unspecified, uncomplicated; Z68.43 Body mass index [BMI] 50.0-59.9, adult
CPT/HCPCS: 36415; 36600; 71045; 74176; 76870; 76937; 80048; 80053; 80202; 80305; 81001; 82803; 82948; 83036; 83605; 83735; 84145; 85018; 85025; 85651; 86140; 87040; 87070; 87077; 87081; 87186; 87491; 93976; 94660; 94760; 96365; 97110; 97116; 97162; 97530; 99285; G0378; J1644; J1815; J2270; J2543; J3370; J7030; J7040

== ENCOUNTER 2019-11-15 11:40 | Day surgery (SDC) | payer MEDICAID ==
[~2019-11-15 11:40] MED LIST: HYDR-4383 PO; INSU100V11 SQ; LACT1CAP26 PO; LANTUS SQ; LINE600T11 PO; LISI10TA4 PO
[2019-11-15] MEDS ORDERED: LIDOcaine 2% 5ml jelly ONE (13:21)
== END 2019-11-15 14:09 | disposition home or self-care (01) ==
LOC: WOUND CARE 11:40
PROVIDERS: ATTEND Nurse Practitioner Family
DX: T81.89XA Other complications of procedures, not elsewhere classified, initial encounter (principal); E11.622 Type 2 diabetes mellitus with other skin ulcer; L98.492 Non-pressure chronic ulcer of skin of other sites with fat layer exposed; E11.65 Type 2 diabetes mellitus with hyperglycemia; I10 Essential (primary) hypertension; E78.5 Hyperlipidemia, unspecified; E66.01 Morbid (severe) obesity due to excess calories; F17.200 Nicotine dependence, unspecified, uncomplicated; F15.10 Other stimulant abuse, uncomplicated; Z68.43 Body mass index [BMI] 50.0-59.9, adult; Y92.238 Other place in hospital as the place of occurrence of the external cause; Y83.8 Other surgical procedures as the cause of abnormal reaction of the patient, or of later complication, without mention of misadventure at the time of the procedure
CPT/HCPCS: 36416; 82948; 97597

== ENCOUNTER 2019-11-18 13:10 | Day surgery (SDC) | payer MEDICAID ==
[2019-11-18] MEDS ORDERED: LIDOcaine 2% 5ml jelly ONE (13:33)
[2019-11-18] MEDS ORDERED: nystatin/triamcinolone cream 15gm TP ONE (13:46)
== END 2019-11-18 14:08 | disposition home or self-care (01) ==
LOC: WOUND CARE 13:10
PROVIDERS: ATTEND Nurse Practitioner
DX: T81.89XD Other complications of procedures, not elsewhere classified, subsequent encounter (principal); E11.622 Type 2 diabetes mellitus with other skin ulcer; L98.492 Non-pressure chronic ulcer of skin of other sites with fat layer exposed; E11.65 Type 2 diabetes mellitus with hyperglycemia; I10 Essential (primary) hypertension; E78.5 Hyperlipidemia, unspecified; E66.01 Morbid (severe) obesity due to excess calories; F17.200 Nicotine dependence, unspecified, uncomplicated; F15.10 Other stimulant abuse, uncomplicated; Z68.43 Body mass index [BMI] 50.0-59.9, adult; Y83.8 Other surgical procedures as the cause of abnormal reaction of the patient, or of later complication, without mention of misadventure at the time of the procedure
CPT/HCPCS: 36416; 82948; 97597; J7999